=== PATIENT | female | born 1970 | race Two or more races ===

== ENCOUNTER 2025-04-05 12:32 | Emergency (ER) | payer OTHER ==
[~2025-04-05] VITALS: Ht 160 cm; Wt 95.3 kg
[2025-04-05] MEDS ORDERED: METOPROLOL SUCC50 MG PO (12:57)
[2025-04-05] MEDS ORDERED: LIPITOR40 M1 PO (12:57)
[2025-04-05] MEDS ORDERED: CETIRIZINE HCL 5 MG/5 ML ML PO ONE (13:45)
[2025-04-05] MEDS ORDERED: CETIRIZINE HCL 5MG/5ML BLIST.PACK PO ONE (13:57)
[2025-04-05 15:19] LABS: BASO % 0.5 % (0.1-1.2); EOS # 0.08 (0.04-0.54); EOS % 1.4 % (0.7-7.0); HEMATOCRIT 38.9 % (34.1-44.9); HEMOGLOBIN 12.9 g/dL (11.2-15.7); LYMPH # 0.97 (1.18-3.74); LYMPH % 16.7 % (19.3-53.1); MONO # 0.58 (0.24-0.82); NEUT # 4.12 (1.56-6.13); NEUT % 71.1 % (34.0-71.1); PLATELET COUNT 206 K/uL (163-369); RED BLOOD COUNT 4.16 M/uL (3.93-5.22); RED CELL DISTRIBUTION WIDTH 13.3 % (11.6-14.4)
[2025-04-05 16:08] LABS: COVID-19 AG POSITIVE (NEGATIVE)
[2025-04-05 16:21] LABS: INFLUENZA A AG NEGATIVE (NEGATIVE); INFLUENZA B AG NEGATIVE (NEGATIVE)
[2025-04-05] MEDS ORDERED: BENZONATATE200 M1 PO (16:35)
[2025-04-05] MEDS ORDERED: PEPCID AC20 MG PO (16:35)
== END 2025-04-05 16:38 | disposition home or self-care (01) ==
LOC: ER 14:08
PROVIDERS: General Practice
DX: U07.1 COVID-19 (principal); R09.81 Nasal congestion; I10 Essential (primary) hypertension; Z88.0 Allergy status to penicillin; Z88.8 Allergy status to other drugs, medicaments and biological substances